=== PATIENT | male | born 1980 | race Caucasian/White ===

== ENCOUNTER 2022-12-13 18:22 | Emergency (ER) | payer SELFPAY ==
[2022-12-13] MEDS ORDERED: Ibuprofen 600 MG Tab PO ONE (18:50)
== END 2022-12-13 21:00 | disposition home or self-care (01) ==
LOC: MW.ED 18:22
DX: S82.102A Unspecified fracture of upper end of left tibia, initial encounter for closed fracture (principal); Z86.16 Personal history of COVID-19; X50.9XXA Other and unspecified overexertion or strenuous movements or postures, initial encounter
CPT/HCPCS: 73562; 99283; A9270

== ENCOUNTER 2023-05-28 07:09 | Observation (INO) | payer SELFPAY ==
[2023-05-28] MEDS ORDERED: Sodium Chloride 0.9% 1,000 ML IV ONE (07:19)
[2023-05-28] MEDS ORDERED: Sodium Chloride 0.9% 2.5 ML Syringe FLUSH PRN (07:19)
[2023-05-28] MEDS ORDERED: Sodium Chloride 0.9% 10 ML Syringe FLUSH PRN (07:19)
[2023-05-28] MEDS ORDERED: Ketorolac 30 MG/ML SDV IVPUSH ONE (07:19)
[2023-05-28] MEDS ORDERED: Ondansetron 4 MG/2 ML SDV IVPUSH ONE (07:19)
[2023-05-28 07:37] LABS: BASOPHILS ABSOLUTE AUTO 0.04 K/uL (0.00-0.20); BASOPHILS PERCENT AUTO 0.2 % (0.0-1.0); HEMATOCRIT 46.8 % (42.0-52.0); HEMOGLOBIN 17.2 g/dL (14.0-18.0); IMMATURE GRAN ABSOLUTE AUTO 0.06 K/uL (0.00-0.05); IMMATURE GRAN PERCENT AUTO 0.4 % (0.0-0.4); LYMPHOCYTES ABSOLUTE AUTO 3.81 K/uL (1.00-4.80); LYMPHOCYTES PERCENT AUTO 23.5 % (24.0-44.0); MEAN CORPUSCULAR HEMOGLOBIN 32.3 pg (28.0-32.0); MEAN CORPUSCULAR HGB CONC 36.8 g/dL (32.0-36.0); MEAN PLATELET VOLUME 8.7 fL (9.4-12.4); MONOCYTES ABSOLUTE AUTO 1.39 K/uL (0.00-0.80); MONOCYTES PERCENT AUTO 8.6 % (0.0-8.0); NEUTROPHILS PERCENT AUTO 67.3 % (41.0-71.0); PLATELET COUNT,PLT 205 K/uL (150-400); RED BLOOD CELL COUNT 5.32 M/uL (4.52-5.90)
[2023-05-28 07:42] LABS: APPEARANCE,URINE CLOUDY; COLOR,URINE YELLOW; GLUCOSE,URINE 500 mg/dL (NEGATIVE); KETONES,URINE 15 mg/dL (NEGATIVE); LEUKOCYTE ESTERASE,URINE SMALL (NEGATIVE); NITRITE,URINE POSITIVE (NEGATIVE); OCCULT BLOOD,URINE LARGE (NEGATIVE); PROTEIN,URINE >=300 mg/dL (NEGATIVE)
[2023-05-28 07:44] LABS: BILIRUBIN,URINE MODERATE (NEGATIVE)
[2023-05-28] MEDS ORDERED: Levofloxacin/Dextrose 5%-Water 500 MG in Premix Bag 1 BAG IV ONE (07:50)
[2023-05-28 07:51] LABS: BACTERIA,URINE FEW (NEGATIVE); EPITHELIAL CELLS,URINE RARE (NONE-FEW); RBC,URINE 30-40 (0-2/HPF); WBC,URINE 75-100 (0-5/HPF)
[2023-05-28 07:52] LABS: MUCUS,URINE LIGHT (NONE-MOD)
[2023-05-28] MEDS ORDERED: HYDROmorphone 1 MG/ML Syringe IVPUSH ONE (07:59)
[2023-05-28 08:02] LABS: A/G RATIO 0.8 (0.9-1.6); ALBUMIN 4.1 g/dL (3.4-5.0); BILIRUBIN TOTAL 1.3 mg/dL (0.2-1.0); CALCIUM 9.2 mg/dL (8.5-10.1); CREATININE 1.4 mg/dL (0.8-1.3); EST CRCL DRUG DOSING (CG) 64.92 mL/min; POTASSIUM,K 4.4 mmol/L (3.5-5.1)
[2023-05-28] MEDS ORDERED: Doxycycline 100 MG Cap PO ONE (09:47)
[2023-05-28] MEDS ORDERED: cefTRIAXone 1 GM in Sodium Chloride 0.9% 50 ML IV ONE (09:47)
[2023-05-28] MEDS ORDERED: Insulin Regular, Human 100 Units/ML 10 ML Vial SUBCUT ONE (09:52)
[2023-05-28] MEDS ORDERED: Glucagon,Human Recombinant 1 MG Vial IM PRN ×2 (09:52→11:04)
[2023-05-28] MEDS ORDERED: 50% Dextrose in Water 50 ML Syringe IVPUSH PRN ×2 (09:52→11:04)
[2023-05-28 11:25] LABS: C. TRACHOMATIS BY PCR NOT DETECTED; N. GONORRHOEAE BY PCR NOT DETECTED
[2023-05-28 12:04] LABS: LACTIC ACID 1.1 mmol/L (0.4-2.0)
[2023-05-28] MEDS: Insulin Aspart 100 Units/ML 3 ML Pen SUBCUT SCH ×4 (12:27→18:49)
[2023-05-28] MEDS: Sodium Chloride 0.9% 1,000 ML IV SCH ×2 (15:16→17:35)
[2023-05-28] MEDS: Acetaminophen 325 MG Tab PO PRN ×2 (15:48→20:02)
[2023-05-28] MEDS: Doxycycline 100 MG Cap PO SCH (20:03)
[2023-05-29] MEDS: Acetaminophen 325 MG Tab PO PRN ×4 (00:12→13:47)
[2023-05-29] MEDS ORDERED: traMADol 50 MG Tab PO ONE (02:04)
[2023-05-29 06:09] LABS: HEMATOCRIT 38.9 % (42.0-52.0); HEMOGLOBIN 14.4 g/dL (14.0-18.0); MEAN CORPUSCULAR HEMOGLOBIN 32.5 pg (28.0-32.0); MEAN CORPUSCULAR VOLUME 87.8 fL (83.0-99.0); MEAN PLATELET VOLUME 8.8 fL (9.4-12.4); PLATELET COUNT,PLT 168 K/uL (150-400); RED BLOOD CELL COUNT 4.43 M/uL (4.52-5.90); WHITE BLOOD CELL COUNT,WBC 13.28 K/uL (3.9-11.3)
[2023-05-29 06:29] LABS: CALCIUM 8.9 mg/dL (8.5-10.1); CARBON DIOXIDE,CO2 24.4 mmol/L (21.0-32.0); EST CRCL DRUG DOSING (CG) 90.89 mL/min; POTASSIUM,K 3.9 mmol/L (3.5-5.1)
[2023-05-29] MEDS ORDERED: Levofloxacin/Dextrose 5%-Water 500 MG in Premix Bag 1 BAG IV SCH (07:00)
[2023-05-29] MEDS ORDERED: cefTRIAXone 1 GM in Sodium Chloride 0.9% 50 ML IV SCH (07:00)
[2023-05-29] MEDS: Insulin Aspart 100 Units/ML 3 ML Pen SUBCUT SCH ×2 (07:39→11:44)
[2023-05-29 08:37] LABS: HEMOGLOBIN A1C 10.5 %
[2023-05-29] MEDS: Doxycycline 100 MG Cap PO SCH ×2 (09:27→09:40)
[2023-05-29] MEDS ORDERED: Ketorolac 30 MG/ML SDV IVPUSH ONE (09:34)
== END 2023-05-29 15:15 | disposition home or self-care (01) ==
LOC: MW.ED 07:09 → MW.MS 11:09
PROVIDERS: ADMIT Family Medicine; ATTEND Family Medicine
DX: N49.0 Inflammatory disorders of seminal vesicle (principal); E11.65 Type 2 diabetes mellitus with hyperglycemia; Z79.84 Long term (current) use of oral hypoglycemic drugs; Z79.899 Other long term (current) drug therapy
CPT/HCPCS: 36415; 74176; 76870; 80048; 80053; 81001; 82947; 83036; 83605; 83690; 85025; 85027; 87491; 87591; 93976; 96365; 96367; 96375; 99285; A9270; J0696; J1170; J1815; J1885; J1956; J2405; J3490; J7030; 96361; 96366; 96376; G0378

== ENCOUNTER 2023-06-25 07:50 | Emergency (ER) | payer SELFPAY ==
[2023-06-25 08:38] LABS: HEMATOCRIT 41.3 % (42.0-52.0); HEMOGLOBIN 14.8 g/dL (14.0-18.0); MEAN CORPUSCULAR HEMOGLOBIN 31.6 pg (28.0-32.0); MEAN CORPUSCULAR HGB CONC 35.8 g/dL (32.0-36.0); MEAN CORPUSCULAR VOLUME 88.1 fL (83.0-99.0); MEAN PLATELET VOLUME 8.6 fL (9.4-12.4); PLATELET COUNT,PLT 222 K/uL (150-400); RED BLOOD CELL COUNT 4.69 M/uL (4.52-5.90); WHITE BLOOD CELL COUNT,WBC 14.14 K/uL (3.9-11.3)
[2023-06-25 08:49] LABS: INR 1.02 (0.86-1.11)
[2023-06-25 08:56] LABS: LYMPHOCYTES ABSOLUTE MAN 4.67 K/uL (1.00-4.80); LYMPHOCYTES PERCENT MAN 33 % (24-44); MONOCYTES ABSOLUTE MAN 1.56 K/uL (0.00-0.80); MONOCYTES PERCENT MAN 11 % (0-8); SEG NEUTROPHILS ABSOLUTE MAN 7.92 K/uL (1.80-7.70); SEG NEUTROPHILS PERCENT MAN 56 % (41-71)
[2023-06-25 08:59] LABS: A/G RATIO 0.7 (0.9-1.6); ALBUMIN 3.5 g/dL (3.4-5.0); BILIRUBIN TOTAL 0.8 mg/dL (0.2-1.0); CALCIUM 9.5 mg/dL (8.5-10.1); CARBON DIOXIDE,CO2 26.5 mmol/L (21.0-32.0); CREATININE 1.3 mg/dL (0.8-1.3); EST CRCL DRUG DOSING (CG) 69.91 mL/min; PROTEIN TOTAL,TP 8.2 g/dL (6.4-8.2)
[2023-06-25 09:02] LABS: LACTIC ACID 0.9 mmol/L (0.4-2.0)
[2023-06-25] MEDS: Sodium Chloride 0.9% 2.5 ML Syringe FLUSH PRN (09:54)
[2023-06-25] MEDS: Levofloxacin/Dextrose 5%-Water 750 MG in Premix Bag 1 BAG IV ONE (09:54)
[2023-06-25] MEDS: Sodium Chloride 0.9% 10 ML Syringe FLUSH PRN (09:54)
[2023-06-25] MEDS: Ketorolac 30 MG/ML SDV IVPUSH ONE (09:54)
[2023-06-25] MEDS: Sodium Chloride 0.9% 1,000 ML IV ONE (09:54)
[2023-06-25] MEDS: Iopamidol 755 MG/ML 500 ML Multipack Bottle IVPUSH STA (10:05)
[2023-06-25 12:01] LABS: APPEARANCE,URINE CLEAR; BILIRUBIN,URINE NEGATIVE (NEGATIVE); COLOR,URINE YELLOW; GLUCOSE,URINE NEGATIVE (NEGATIVE); KETONES,URINE TRACE mg/dL (NEGATIVE); LEUKOCYTE ESTERASE,URINE NEGATIVE (NEGATIVE); NITRITE,URINE POSITIVE (NEGATIVE); OCCULT BLOOD,URINE NEGATIVE (NEGATIVE); PROTEIN,URINE NEGATIVE (NEGATIVE); UROBILINOGEN,URINE 0.2 EU/dL (<2.0)
[2023-06-25 12:10] LABS: BACTERIA,URINE 1+ (NEGATIVE); EPITHELIAL CELLS,URINE OCCASIONAL (NONE-FEW); RBC,URINE 0-2 (0-2/HPF)
[2023-06-25 13:32] LABS: C. TRACHOMATIS BY PCR NOT DETECTED; N. GONORRHOEAE BY PCR NOT DETECTED
[2023-06-25] MEDS: Doxycycline 100 MG Cap PO ONE (13:49)
== END 2023-06-25 13:51 | disposition left against medical advice (07) ==
LOC: MW.ED 07:50
DX: N49.0 Inflammatory disorders of seminal vesicle (principal); E11.9 Type 2 diabetes mellitus without complications; Z86.16 Personal history of COVID-19; Z79.84 Long term (current) use of oral hypoglycemic drugs
CPT/HCPCS: 36415; 74177; 76870; 80053; 81001; 83605; 85025; 85610; 87040; 87077; 87086; 87186; 87491; 87591; 93976; 96365; 96366; 96375; 99284; A9270; J1885; J1956; J3490; J7030; Q9967